=== PATIENT | female | born 1980 | race Hispanic/Latino ===

== ENCOUNTER 2016-07-14 23:06 | Emergency (ER) | payer OTHER ==
[~2016-07-14] VITALS: Ht 165.1 cm; Wt 68.2 kg
[2016-07-14 23:12] VITALS: BP 107/73; PULSE 69; RESP 16; O2SAT 100
--- NOTE | 2016-07-14 23:23 | ED.REPORT ---
HPI-Extremity Problem Upper Date of Service Jul 14, 2016 ED Provider: Dr. Wilfrid Miranda D.O. A healthy 36 year old female presents to the ED with a painful burn to her right forearm onset two hours prior arrival. The patient was cooking at work when her arm was exposed to steam from an oven. The patient applied aloe vera cream with no relief. She denies other symptoms at this time. Nursing Notes Stated Complaint: RIGHT ARM INJURY/BURN Chief Complaint: Extremity Trauma Nursing Notes Reviewed: Yes Allergies: Coded Allergies: No Known Allergies (Unverified , 07/14/16) General Time Seen by MD: 23:22 Chief Complaint Other (Right Forearm Burn) Hx Obtained From: Patient Arrived By: Walk-in Onset Occurred: 2 days ago Symptom Duration: Since onset Caused by: Burn Context: Occurred at: Workplace Location: : Forearm right Quality: Painful Severity: Current: Moderate Severity: Maximum: Moderate Pertinent Negative: Pt denies other symptoms Pertinent Negative: Relieved by nothing Immunizations: Tetanus up to date Recent Healthcare: No recent doctor visit Past Medical History Past Medical History None reported Past Surgical History None reported Smoking History Unknown if Ever Smoker Social History Other Social History: Good social support Ambulatory Status Independent Review of Systems Review of Systems Note: + Right forearm burn Constitutional: Denies: Fever Musculoskeletal: Reports: Extremity pain (Right forearm) Complete sys rev & neg: except as marked. Respiratory: Denies: Non-productive cough, Shortness of breath GI: Denies: Diarrhea, Vomiting Physical Exam Initial Vital Signs Vital Signs (First) Date Time Temp Pulse Resp B/P Pulse Ox O2 Delivery O2 Flow Rate FiO2 07/14/16 23:12 36.1 69 16 107/73 100 Room Air Initial VS: Reviewed Head / Eyes: Atraumatic, Normocephalic ENT: Conjunctiva normal, No scleral icterus Neck: Supple, Full range of motion Respiratory: Breath sounds normal, Clear to auscultation, No respiratory distress Cardiovascular: Regular rate & rhythm, Heart sounds normal Neurologic: Alert, Oriented, Nonfocal Psychiatric: Mood/affect normal, Behavior normal, Normal thought content General/Constitutional: Awake, Alert Distress / Hydration: Positive: Distress mild (due to pain) Skin: Warm, Dry Trauma / Burn / Environmental: Positive: % surface area burned (3), Circumferential burn... (Arm R) First degree burn to right forearm with few scattered second degree blisters Re-Eval/Medical Decision Med Decision/Clinical Course The wounds were cold, cleaned and dressed. There were no blisters that will need to be opened up. Bacitracin ointment was applied because her a few spots and looks like may blister. Short course of [place] prescribed for pain. Recommend close outpatient follow-up. Garcia are all first degree for the most part. Re-Evaluation/Progress : Time of Eval: 00:20 Patient Status: Condition improved Re-Evaluation/Progress Note: Discussed with patient diagnosis and plan for discharge. Follow-up and return to the ER instructions given. Patient agrees with plan for care and all questions were addressed. Counseled Regarding: Diagnosis, Need for follow-up, When/why to return to ED Discharge & Departure Shift Change Sign-Out Response to Therapy: Improved Impression: Primary Impression: Burn Disposition: Home Discharge Condition All VS Reviewed: Yes Condition: Improved Patient Instructions: Superficial Burn (ED) Additional Instructions: Thank you for entrusting us with your care. Change the burn dressings twice daily. Return to the ER for a wound check in 48 hours. You may also be seen at Urgent Care or by your primary care provider for this. 1-2 [place] every six hours as needed for severe pain. Use Motrin as directed for moderate pain. Do not drink alcohol, drive, or consume acetaminophen while taking [place]. Call your primary care provider tomorrow for a follow-up appointment. Watch for signs of infection. Read the burn after-care instructions. Return to the ER with any new or worsening symptoms. Referrals: [facility] Scrib[employer] Attestation Portions of this note were transcribed by Paige Cavanaugh. I, Dr. Miranda, personally performed the history, physical exam, and medical decision-making; I reviewed and confirmed the accuracy of the information in the transcribed note. Signed by: Yvette Dumont, 07/15/2016, 01:10 copies to: [facility] Wilfrid Miranda DO Jul 14, 2016 23:22 PAIGE CAVANAUGH Jul 14, 2016 23:29
[2016-07-14] MEDS ORDERED: HYDROcodone-APAP 5-325 mg Tablet PO ONE (23:25)
[2016-07-14] MEDS ORDERED: Bacitracin Ointment Packet TOPICAL ONE (23:25)
[2016-07-15] MEDS ORDERED: _HYDROcodone/APAP 5-325 mg Tablet PO PRN (00:25)
[2016-07-15 00:43] VITALS: BP 110/73; PULSE 72; RESP 16; O2SAT 100
[2016-07-16] MEDS ORDERED: IBUP800T28 PO (19:40)
[2016-07-22] MEDS ORDERED: SILV20CR4 TP (13:33)
== END 2016-07-15 00:47 | disposition home or self-care (01) ==
LOC: SED 23:06
DX: T22.211A Burn of second degree of right forearm, initial encounter (principal); X13.1XXA Other contact with steam and other hot vapors, initial encounter; Y93.G3 Activity, cooking and baking; Y92.69 Other specified industrial and construction area as the place of occurrence of the external cause; Y99.0 Civilian activity done for income or pay

== ENCOUNTER 2016-07-16 15:48 | Emergency (ER) | payer OTHER ==
[~2016-07-16] VITALS: Ht 165.1 cm; Wt 77.3 kg
[2016-07-16 15:54] VITALS: BP 111/71; PULSE 119; RESP 16; O2SAT 97
[2016-07-16 18:10] VITALS: BP 103/69; PULSE 63; RESP 16; O2SAT 100
--- NOTE | 2016-07-16 19:02 | ED.REPORT ---
HPI-Extremity Problem Upper Date of Service Jul 16, 2016 ED Provider: Herbie Harris MD Pt is a 36 y/o female presenting to the ED for a wound recheck. The patient was seen by Dr. Miranda in the ED 2 days ago for a burn of the right forearm which was caused by steam exposure at work. She c/o mild subjective fever last night ( afebrile in ED) and of a blister which has developed. Her pain has not seemed to increase. She denies chills, vomiting. Nursing Notes Stated Complaint: RECHECK HAND Chief Complaint: Wound Recheck/Suture Removal Nursing Notes Reviewed: Yes Allergies: Coded Allergies: No Known Allergies (Unverified , 07/16/16) Scheduled PRN Ibuprofen (Ibuprofen) 800 Mg Tablet 800 MG PO TID PRN PRN For Pain General Time Seen by MD: 18:44 Chief Complaint Forearm injury right Hx Obtained From: Patient Arrived By: Walk-in Onset Occurred: 2 days ago Symptom Duration: Since onset Caused by: Burn Location: : Forearm right Quality: Painful Severity: Current: Mild Severity: Maximum: Mild Recent Healthcare: Recent doctor visit, Previous diagnosis Past Medical History Past Medical History None reported Past Surgical History None reported Smoking History Unknown if Ever Smoker Social History Other Social History: Good social support Ambulatory Status Independent Review of Systems Constitutional: Reports: Fever, Denies: Chills Musculoskeletal: Reports: Extremity pain Skin: Reports Rash, Denies Itching Complete sys rev & neg: except as marked. Respiratory: Denies: Non-productive cough, Shortness of breath Cardiovascular: Denies: Chest pain, Dyspnea on exertion GI: Denies: Abdominal pain, Nausea, Vomiting Physical Exam Initial Vital Signs Vital Signs (First) Date Time Temp Pulse Resp B/P Pulse Ox O2 Delivery O2 Flow Rate FiO2 07/16/16 15:54 36.3 119 16 111/71 97 Room Air Initial VS: Reviewed, Vital signs abnormal Head / Eyes: Atraumatic, Normocephalic, PERRL ENT: Mucous membranes moist, Conjunctiva normal, No scleral icterus Neck: Supple, Full range of motion Respiratory: No respiratory distress Cardiovascular: Intact distal pulses Skin: Warm, Dry, No cyanosis Neurologic: Alert, Oriented, Nonfocal Psychiatric: Mood/affect normal, Behavior normal, Normal thought content General/Constitutional: Awake, Alert, No acute distress, Well appearing, Cooperative, Not toxic appearing Upper Extremity / MS: Full range of motion, No deformity, Neurologic intact, Vascular intact, No compartment syndrome, No clubbing/cyanosis, No edema 10 cm x 8 cm superficial burn from the medial aspect of the right arm. No surround erythema, discharge, or fluctuance. Skin: Warm, Dry Procedures Procedure Notes: Procedure: The burn was debrided and wrapped in Silvadene, non-adhesive gauze, and curlex. The patient was instructed on how to care for the burn in the next couple of days. No complications. Re-Eval/Medical Decision Med Decision/Clinical Course 36-year-old female with superficial burn right forearm with steam 2 days ago. Seen in ER 2 days ago. Came here for wound check today. There is no evidence of infection. I debrided the entire burn today. Applied Silvadene and dressed. She is advised to apply Silvadene twice a day and return for recheck 2 days. Return precautions sooner if any signs and symptoms infection. Re-Evaluation/Progress : Time of Eval: 19:40 Re-Evaluation/Progress Note: Pt rechecked. Informed pt of plan for treatment. Pt understands and agrees with plan for treatment. F/U instructions and RTER warnings given. All questions addressed. Counseled Regarding: Diagnosis, Need for follow-up, When/why to return to ED Discharge & Departure Impression: Primary Impression: Burn Disposition: Home Discharge Condition All VS Reviewed: Yes Condition: Stable Patient Instructions: Superficial Burn (ED) Additional Instructions: The burn is not infected at the moment. It was debrided here in the emergency department today. Take the wrap off tomorrow morning. Apply Silvadene as directed twice per day for 2 days. Take 600 mg Ibuprofen every 6 hours as needed for aching pain. You can use the previously prescribed [place] for severe breakthrough pain. Return to the emergency department earlier if you notice redness, fever, chills , swelling, discolored discharge, severe pain, vomiting, or for other concerning symptoms. Have the burn rechecked by Urgent Care, the [facility], or the emergency department in 2 days. Referrals: [facility] Scribe Attestation Portions of this note were transcribed by Karl Alicia. I, Dr. Harris personally performed the history, physical exam and medical decision-making; I reviewed and confirmed the accuracy of the information in the transcribed note. Signed by Yvette Putnam, 07/16/16 - 1929 Herbie Harris MD Jul 16, 2016 19:02 KARL ALICIA Jul 16, 2016 19:13
[2016-07-16] MEDS ORDERED: IBUP800T28 PO (19:40)
[2016-07-22] MEDS ORDERED: SILV20CR4 TP (13:33)
== END 2016-07-16 20:01 | disposition home or self-care (01) ==
LOC: SED 15:48
DX: T22.211D Burn of second degree of right forearm, subsequent encounter (principal); T31.0 Burns involving less than 10% of body surface; X13.1XXD Other contact with steam and other hot vapors, subsequent encounter; Y93.G3 Activity, cooking and baking; Y99.0 Civilian activity done for income or pay; Y92.511 Restaurant or cafe as the place of occurrence of the external cause